=== PATIENT | male | born 2000 | race Caucasian/White ===

== ENCOUNTER 2019-08-12 03:05 | Emergency (ER) | payer MEDICAID ==
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
[2019-08-12 03:43] LABS: ABSOLUTE NEUTROPHIL COUNT 5.31; BASO % 0.3 % (0-6); EOS % 1.2 % (0-6); HEMATOCRIT 44.9 % (42.0-52.0); HEMOGLOBIN 15.4 gm/dl (14.0-18.0); LYMPH % 38.8 % (16-45); MEAN CELL VOLUME 87.9 fl (81-97); MEAN CORPUSCULAR HEMOGLOBIN 30.1 pg (27-33); MEAN CORPUSCULAR HGB CONC 34.3 g/dl (32-36); MEAN PLATELET VOLUME 9.5 fl (7.4-10.4); MONO % 7.7 % (0-9); PLATELET COUNT 240 K/uL (130-400); RED BLOOD COUNT 5.11 M/uL (4.40-5.70); RED CELL DISTRIBUTION WIDTH 13.7 % (11.5-14.5); WHITE BLOOD COUNT W/O DIFF 10.2 K/uL (4.2-12.2)
[2019-08-12 03:50] LABS: BLOOD UREA NITROGEN 14 mg/dL (6-20); CREATININE 1.2 mg/dL (0.7-1.2); EST GLOMERULAR FILTRATION RATE > 60 mL/min
[2019-08-12 03:52] LABS: GLUCOSE,RANDOM 102 mg/dL (74-109); INR 1.1; PARTIAL THROMBOPLASTIN TIME 24.6 SECONDS (24.5-39.1)
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
== END 2019-08-12 05:00 | disposition home or self-care (01) ==
LOC: ER 03:05
DX: S16.1XXA Strain of muscle, fascia and tendon at neck level, initial encounter (principal); S00.93XA Contusion of unspecified part of head, initial encounter; R10.10 Upper abdominal pain, unspecified; V86.65XA Passenger of 3- or 4- wheeled all-terrain vehicle (ATV) injured in nontraffic accident, initial encounter
CPT/HCPCS: 99284 ×2; 85025; 85730; 85610; 80048; 72125; 71260; 70450; 74177; Q9967